=== PATIENT | female | born 1980 | race Two or more races ===

== ENCOUNTER 2024-05-15 01:41 | Inpatient (IN) | payer OTHER ==
[~2024-05-15] VITALS: Ht 165.1 cm; Wt 80.0 kg
[2024-05-15] MEDS: MORPHINE SULFATE 4 MG/ML SYR/VIAL IM ONE (02:44)
[2024-05-15] MEDS: ONDANSETRON HCL 4 MG/2 ML VIAL IM ONE (02:45)
[2024-05-15 02:53] LABS: Basophils # (auto) 0 10 ^3/uL (0-0.2); Basophils % (auto) 0.1 % (0.0-2.0); Eosinophils # (auto) 0 10 ^3/uL (0-0.8); Hematocrit 38.5 % (36.0-46.0); Lymphocytes # (auto) 0.7 10 ^3/uL (0.4-5.4); Lymphocytes % (auto) 5.5 % (10.0-50.0); Mean Corpuscular Hemoglobin 28.7 pg (28.0-32.0); Mean Corpuscular Hgb Conc. 33.8 g/dL (32.0-36.0); Mean Corpuscular Volume 85.1 fL (80.0-100.0); Monocytes # (auto) 0.5 10 ^3/uL (0-1.3); Monocytes % (auto) 3.9 % (0.0-12.0); Neutrophils % (auto) 90.5 % (37.0-80.0); Red Blood Cells 4.53 10^6/uL (4.0-5.20); Red Cell Distribution Width 13.7 % (11.8-14.3); White Blood Cell 13.3 10^3/uL (4.4-10.8)
[2024-05-15 02:56] LABS: Alanine Aminotransferase 15 U/L (7-40); Albumin 4.4 g/dL (3.2-4.8); Alkaline Phosphatase 59 U/L (46-116); Anion Gap 9 (5-15); Aspartate Aminotransferase 10 U/L (13-40); BUN/Creatinine Ratio 15.2 (10.0-20.0); Bilirubin, Total 0.6 mg/dL (0.2-1.0); Blood Urea Nitrogen 10 mg/dL (9-23); Carbon Dioxide 22 mmol/L (20-30); Chloride 106 mmol/L (98-107); Glucose 148 mg/dL (74-106); Lipase 43 U/L (12-53); Sodium 137 mmol/L (136-145); Total Protein 8.6 g/dL (5.7-8.2)
[2024-05-15] MEDS: KETOROLAC TROMETH 60MG/2ML VIAL IM ONE (03:24)
[2024-05-15 04:08] LABS: Urine Bacteria FEW /hpf (None Seen); Urine Blood Negative /uL (Negative); Urine Clarity Clear (Clear); Urine Color Yellow (Yellow); Urine Mucus FEW (None Seen); Urine Protein, UAD Negative (Negative); Urine Specific Gravity 1.024 (1.001-1.035); Urine Urobilinogen Normal (Negative); Urine WBC 5 /hpf (0 - 5)
[2024-05-15 05:47] VITALS: PULSE 78; RESP 13; O2SAT 95
[2024-05-15] MEDS: SODIUM CHLORIDE 0.9% 1,000 ML IV ONE (06:00)
[2024-05-15] MEDS ORDERED: ONDANSETRON HCL 4 MG/2 ML VIAL IV PRN (06:15)
[2024-05-15] MEDS: SODIUM CHLORIDE 0.9% 1,000 ML IV SCH (07:00)
[2024-05-15 07:03] LABS: INR 1.07 (0.9-1.15); Partial Thromboplastin Time 27.9 SEC (24.5-34.5); Prothrombin Time 11.3 sec (9.3-11.8)
[2024-05-15 07:23] VITALS: PULSE 81; RESP 16; O2SAT 95
[2024-05-15] MEDS: MIDAZOLAM HCL 5 MG/ML-1ML VIAL IV ONE (07:30)
[2024-05-15 10:41] LABS: CRP High Sensitivity 0.05 mg/dL (<1.0)
[2024-05-15 10:44] LABS: Amphetamine Screen, Urine Neg (NEGATIVE); Barbiturate Scree,Urine Neg (NEGATIVE); Cocaine Screen, Urine Neg (NEGATIVE); Opiate Scree,Urine Pos (NEGATIVE)
[2024-05-15 10:45] LABS: Cannabinoid Screen, Urine Neg (NEGATIVE); Phencyclidine Screen, Urine Neg (NEGATIVE)
[2024-05-15 11:22] LABS: Benzodiazephine Screen, Urine Neg (NEGATIVE)
[2024-05-15 17:48] VITALS: BP 110/61; PULSE 85; RESP 12; TEMP 98.8; O2SAT 97
[2024-05-15 20:00] VITALS: PULSE 87; RESP 18; O2SAT 97
[2024-05-15 21:00] VITALS: BP 109/58; PULSE 91; RESP 18; TEMP 97.8; O2SAT 97
[2024-05-16] VITALS (8 sets, daily range): BP systolic 97–148; BP diastolic 53–73; PULSE 68–87; RESP 17–20; TEMP 97.5–98.2; O2SAT 96–98
[2024-05-16 07:06] LABS: Basophils # (auto) 0 10 ^3/uL (0-0.2); Basophils % (auto) 0.5 % (0.0-2.0); Eosinophils # (auto) 0 10 ^3/uL (0-0.8); Eosinophils % (auto) 0.5 % (0.0-7.0); Hematocrit 35.3 % (36.0-46.0); Hemoglobin 11.8 g/dL (12.2-16.2); Lymphocytes # (auto) 1.5 10 ^3/uL (0.4-5.4); Lymphocytes % (auto) 26.4 % (10.0-50.0); Mean Corpuscular Hemoglobin 28.7 pg (28.0-32.0); Mean Corpuscular Hgb Conc. 33.5 g/dL (32.0-36.0); Mean Corpuscular Volume 85.7 fL (80.0-100.0); Monocytes # (auto) 0.6 10 ^3/uL (0-1.3); Monocytes % (auto) 11.4 % (0.0-12.0); Neutrophils # (auto) 3.4 10 ^3/uL (1.6-8.6); Neutrophils % (auto) 61.2 % (37.0-80.0); Nucleated Red Blood Cells % 0.1 %; Red Blood Cells 4.12 10^6/uL (4.0-5.20); Red Cell Distribution Width 13.5 % (11.8-14.3); White Blood Cell 5.6 10^3/uL (4.4-10.8)
[2024-05-16 07:27] LABS: Albumin 3.5 g/dL (3.2-4.8); Alkaline Phosphatase 49 U/L (46-116); Anion Gap 5 (5-15); Aspartate Aminotransferase < 8 U/L (13-40); BUN/Creatinine Ratio 13.8 (10.0-20.0); Bilirubin, Total 1.1 mg/dL (0.2-1.0); Blood Urea Nitrogen 8 mg/dL (9-23); Calcium 8.8 mg/dL (8.5-10.1); Carbon Dioxide 26 mmol/L (20-30); Chloride 110 mmol/L (98-107); Glucose 88 mg/dL (74-106); Potassium 3.9 mmol/L (3.5-5.1); Sodium 141 mmol/L (136-145); Total Protein 6.6 g/dL (5.7-8.2)
[2024-05-16 07:31] LABS: Alanine Aminotransferase < 9 U/L (7-40)
[2024-05-16] MEDS ORDERED: fentaNYL CITRATE 100 MCG/2 ML VL ONE ×2 (13:50→15:13)
[2024-05-16] MEDS ORDERED: HYDROmorphone HCL 2 MG/ML VL/or syr ONE (13:50)
[2024-05-16] MEDS ORDERED: MIDAZOLAM HCL 2MG/2ML 2ml VIAL (1mg/ml) ONE (13:50)
[2024-05-16] MEDS ORDERED: LIDOCAINE 1% INJ PF 5ML AMP ONE (13:51)
[2024-05-16] MEDS ORDERED: ONDANSETRON HCL 4 MG/2 ML VIAL ONE (13:51)
[2024-05-16] MEDS ORDERED: DexAMETHasone SOD PHOS 10MG/1ML VIAL INJ ONE (13:51)
[2024-05-16] MEDS ORDERED: GLYCOPYRROLATE 0.2 MG/ML 1ML VIAL ONE (13:51)
[2024-05-16] MEDS ORDERED: KETOROLAC TROMETH 30 MG/ML 1ML VIAL ONE (13:51)
[2024-05-16] MEDS ORDERED: PROPOFOL 10 MG/ML 20 ML IV ONE (13:51)
[2024-05-16] MEDS ORDERED: ROCURONIUM 10MG/ML 10ML VIAL IV ONE (13:51)
[2024-05-16] MEDS: ceFAZolin 2 GM/D5W50ml 50 ML IV ONE (14:38)
[2024-05-16] MEDS ORDERED: KETAMINE 50mg/ML 1ml syringe ONE (15:07)
[2024-05-16] MEDS ORDERED: SUGAMMADEX 200mg/2ml Vial (100MG/ML) IV ONE ×2 (15:23)
[2024-05-16] MEDS ORDERED: MEPERIDINE HCL (25 MG/ML) 1ML VIAL ONE (15:49)
[2024-05-16] MEDS ORDERED: HYDROmorphone HCL 2 MG/ML VL/or syr IV PRN (16:00)
[2024-05-16] MEDS: ONDANSETRON HCL 4 MG/2 ML VIAL IV ONE (16:00)
[2024-05-16] MEDS: ceFAZolin 1GM/50ML 50 ML IV SCH (21:53)
[2024-05-17 01:00] VITALS: BP 111/60; PULSE 81; RESP 17; TEMP 97.8; O2SAT 97
[2024-05-17 05:00] VITALS: BP 91/59; PULSE 91; RESP 18; TEMP 98.2; O2SAT 96
[2024-05-17 07:14] LABS: Basophils # (auto) 0 10 ^3/uL (0-0.2); Eosinophils # (auto) 0 10 ^3/uL (0-0.8); Hematocrit 33.1 % (36.0-46.0); Hemoglobin 11.3 g/dL (12.2-16.2); Lymphocytes # (auto) 0.7 10 ^3/uL (0.4-5.4); Lymphocytes % (auto) 8.3 % (10.0-50.0); Mean Corpuscular Hgb Conc. 34.1 g/dL (32.0-36.0); Mean Corpuscular Volume 84.9 fL (80.0-100.0); Monocytes # (auto) 0.6 10 ^3/uL (0-1.3); Monocytes % (auto) 6.8 % (0.0-12.0); Neutrophils # (auto) 7.3 10 ^3/uL (1.6-8.6); Neutrophils % (auto) 84.9 % (37.0-80.0); Red Blood Cells 3.89 10^6/uL (4.0-5.20); Red Cell Distribution Width 13.7 % (11.8-14.3); White Blood Cell 8.6 10^3/uL (4.4-10.8)
[2024-05-17 07:15] LABS: Alanine Aminotransferase 10 U/L (7-40); Albumin 3.6 g/dL (3.2-4.8); Alkaline Phosphatase 49 U/L (46-116); Anion Gap 7 (5-15); Aspartate Aminotransferase 9 U/L (13-40); Calcium 9.3 mg/dL (8.5-10.1); Carbon Dioxide 25 mmol/L (20-30); Chloride 108 mmol/L (98-107); Glucose 119 mg/dL (74-106); Potassium 3.8 mmol/L (3.5-5.1); Sodium 140 mmol/L (136-145)
[2024-05-17 07:16] LABS: Bilirubin, Total 0.7 mg/dL (0.2-1.0); Total Protein 6.7 g/dL (5.7-8.2)
[2024-05-17 07:17] LABS: BUN/Creatinine Ratio 9.8 (10.0-20.0); Blood Urea Nitrogen < 5 mg/dL (9-23)
[2024-05-17 07:23] LABS: Magnesium 1.8 mg/dL (1.6-2.6)
[2024-05-17] MEDS ORDERED: METOCLOPRAMIDE HCL 5MG/ml INJ 2ml VIAL IV PRN (08:45)
[2024-05-17 08:48] VITALS: BP 117/70; PULSE 83; RESP 18; TEMP 98.3; O2SAT 99
[2024-05-17] MEDS: MORPHINE SULFATE INJ 2 MG/ml SYRG IV PRN (08:50)
[2024-05-17 12:19] VITALS: BP 107/69; PULSE 79; RESP 18; TEMP 98.4; O2SAT 97
[2024-05-17] MEDS ORDERED: CEPH250C PO (13:03)
[2024-05-17] MEDS ORDERED: OXYC-962 PO (13:26)
[2024-05-17] MEDS ORDERED: HYDR-4902 PO (17:06)
[2024-05-17 17:11] VITALS: BP 118/69; PULSE 74; RESP 20; TEMP 98.7; O2SAT 95
== END 2024-05-17 17:40 | disposition home or self-care (01) | DRG 355 ==
LOC: ER 01:41 → OVERFLOW 06:20 → EDBD 06:20 → WEST WING 06:20
PROVIDERS: ADMIT Internal Medicine Pulmonary Disease; ATTEND Internal Medicine Pulmonary Disease
PROC: 0WQF0ZZ Repair Abdominal Wall, Open Approach (ICD-10-PCS; principal; 2024-05-16 14:38)
DX: K42.0 Umbilical hernia with obstruction, without gangrene (principal); M06.9 Rheumatoid arthritis, unspecified; Z79.899 Other long term (current) drug therapy
CPT/HCPCS: 36415; 74176; 80053; 80061; 80307; 81001; 83036; 83605; 83615; 83690; 83735; 84443; 84702; 85025; 85610; 85730; 86141; 86850; 86900; 86901; 87081; 88302; 96360; 96361; 96372; G0378; J1100; J1885; J2250; J2405; J2704